=== PATIENT | male | born 1985 | race Caucasian/White ===

== ENCOUNTER 2019-05-08 17:44 | Emergency (ER) | payer MEDICAID ==
[~2019-05-08] VITALS: Ht 175.3 cm; Wt 72.6 kg
[2019-05-08] MEDS ORDERED: NKM (17:49)
--- NOTE | 2019-05-08 18:00 | NUR ---
ED Nurse Note: Patient arrived by EMS from [facility] stating that he passed out after an IV was started on him. BP was 48/60 in abmulance. Per EMS, 1 L NS, BP stabilized, patient AxO x 4, on thread trimmer. Bed in lowest position.
[2019-05-08 18:05] VITALS: BP 92/60
--- NOTE | 2019-05-08 18:48 | Emergency Room Report ---
History of Present Illness General Chief Complaint: Dizziness Source: Patient Present Illness HPI This patient states that he had developed a sore throat over the past few days. He went to get a vitamin infusion at an outpatient clinic and as soon as the lighting engineering technician placed the IV he became sweaty, nauseated and lightheaded and then lost consciousness. The patient's girlfriend is with him and witnessed the event. She states that he was unresponsive for less than a minute. He denies fever or chills. He denies vomiting or neck pain. He denies head trauma. He has no other complaints. Allergies: Coded Allergies: No Known Allergies (Unverified , 05/08/19) Patient History Past Medical History: none Social History: Denies: smoking, alcohol use, drug use Reviewed Nursing Documentation: PMH: Agreed; PSxH: Agreed Nursing Documentation-PMH Past Medical History: No Stated History Review of Systems All Other Systems: negative except mentioned in HPI Physical Exam Vital Signs Date Time Temp Pulse Resp B/P (MAP) Pulse Ox O2 Delivery O2 Flow Rate FiO2 05/08/19 17:45 98.8 46 14 95/63 (74) 100 Room Air Sp02 EP Interpretation: reviewed, normal General Appearance: no apparent distress, alert, GCS 15, non-toxic Head: normocephalic, atraumatic Eyes: bilateral eye normal inspection, bilateral eye PERRL ENT: hearing grossly normal, normal pharynx, no angioedema, normal voice Neck: full range of motion, supple/symm/no masses Respiratory: chest non-tender, lungs clear, normal breath sounds, no respiratory distress, no retraction, no accessory muscle use, speaking full sentences Cardiovascular #1: regular rate, rhythm, no edema Gastrointestinal: normal bowel sounds, non tender, soft, non-distended, no guarding, no rebound Rectal: deferred Musculoskeletal: back normal, gait/station normal, normal range of motion, non- tender Neurologic: alert, oriented x3, responsive, motor strength/tone normal, sensory intact, speech normal Psychiatric: judgement/insight normal, memory normal, mood/affect normal, no suicidal/homicidal ideation Skin: no rash, normal color Medical Decision Making Diagnostic Impression: Primary Impression: Syncope ER Course I suspect the syncope that the patient is presenting with is a nonemergent in etiology. Regarding the history, the patient has no history of structural heart disease or coronary artery disease, no family history of sudden , has no shortness of breath, and the syncope is not exertional. On physical exam , the patient is not hypotensive, has no findings of CHF, and no significant cardiac murmur suggestive of valvular heart disease or cardiac outflow obstruction. The patient reports no history of seizure or head trauma. EKG showed no evidence of concerning findings of QT prolongation, Brugada syndrome or significant ST changes suggestive of acute ischemia, dysrhythmias or significant conduction abnormalities. 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 He also has a low blood pressure although not alarmingly low. The patient's repeat blood pressure was 104/67. The patient had received a liter of normal saline by EMS that finished infusing here in the emergency department. The patient ambulated out symptoms and was well and asymptomatic. I did not feel that any further evaluation was indicated at this time as this was most consistent with vasovagal syncope. The patient was counseled that, though unlikely, the possibility of an emergent cause of syncope may be present and that the patient should return immediately if symptoms persist or worsen. I believe the patient is stable for discharge to followup with her PMD for further workup. EKG Diagnostic Results Rate: normal Rhythm: NSR ST Segments: no acute changes Rhythm Strip Diag. Results EP Interpretation: yes Rate: 40's Rhythm: no PVC's, no ectopy, other - S.bradycardia Last Vital Signs Date Time Temp Pulse Resp B/P (MAP) Pulse Ox O2 Delivery O2 Flow Rate FiO2 05/08/19 17:45 98.8 46 14 95/63 (74) 100 Room Air Status: improved Disposition: HOME, SELF-CARE Condition: Improved Patient Instructions: Syncope Tania Castle DO May 08, 2019 18:48
--- NOTE | 2019-05-08 19:00 | NUR ---
ED Nurse Note: Patient resting in bed. Reviewed DC instructions, pt verbalised understanding. IV removed.
[2019-05-08 19:10] VITALS: BP 104/64
--- NOTE | 2019-05-08 19:26 | NUR ---
ER DISCHARGE NOTE: Patient is cleared to be discharged per ERMD, pt is aox4, on room air, with stable vital signs. pt is able to ambulate with steady gait. pt took all belongings.
== END 2019-05-08 19:10 | disposition home or self-care (01) ==
LOC: EDBD 17:44 → EMR 18:52
DX: R55 Syncope and collapse (principal); R07.0 Pain in throat; R00.1 Bradycardia, unspecified
CPT/HCPCS: 93005; Z7502; 99283